=== PATIENT | female | born 1975 | race Caucasian/White ===

== ENCOUNTER 2018-04-22 22:24 | Emergency (ER) | payer OTHER ==
[~2018-04-22] VITALS: Ht 172.7 cm; Wt 127.9 kg
--- NOTE | ~2018-04-22 | EKG ---
[place], [place] ELECTROCARDIOGRAM REPORT NAME: AIDAN LAWS UNIT #: [id number] ROOM: DOCTOR: EPIPHANY DRAFT REPORT BIRTHDATE: [birth year] [facility] Test Date: 2018-04-22 Test Time: 22:54:13 Pat Name: AIDAN LAWS Department: ER Room: 5 Gender: F Can Stacker: FROYLAN : 1975 Requested By: ULISES WHITMORE Order Number: [id number] Reading MD: Aimee Bowens MD Measurements Intervals [place] Rate: 84 P: 30 TX: 147 QRS: 29 QRSD: 82 T: 26 QT: 363 QTc: 430 Interpretive Statements Sinus rhythm Low voltage, precordial leads Baseline wander in lead(s) I,aVR Electronically Signed On 04-24-2018 14:01:55 PDT by Aimee Bowens MD CM:EKGRPT:ELECTROCARDIOGRAM REPORT [id number] ULISES LARA DRAFT REPORT ULISES WHITMORE DO
--- NOTE | ~2018-04-22 | EKG ---
[place], [place] ELECTROCARDIOGRAM REPORT NAME: AIDAN LAWS UNIT #: [id number] ROOM: DOCTOR: EPIPHANY DRAFT REPORT BIRTHDATE: [birth year] [facility] Test Date: 2018-04-23 Test Time: 01:41:13 Pat Name: AIDAN LAWS Department: ER Room: 5 Gender: F Cardiac Sonographer: Candi Worley : 1975 Requested By: ULISES WHITMORE Order Number: [id number] Reading MD: Aimee Bowens MD Measurements Intervals [place] Rate: 68 P: 41 NM: 142 QRS: 51 QRSD: 84 T: 50 QT: 438 QTc: 466 Interpretive Statements Sinus rhythm Borderline low voltage, extremity leads Electronically Signed On 04-24-2018 14:02:02 PDT by Aimee Bowens MD CM:EKGRPT:ELECTROCARDIOGRAM REPORT [id number] ULISES LARA DRAFT REPORT ULISES WHITMORE DO
[2018-04-22] MEDS ORDERED: XARELTO1 EACH PO (22:41)
[2018-04-22 23:28] LABS: BASO # 0.1 10*3/uL (0.0-0.1); BASO % 0.5 % (0.0-1.0); EOS # 0.1 10*3/uL (0.0-0.4); EOS % 0.5 % (1.0-4.0); HEMATOCRIT 45.4 % (37.0-47.0); LYMPH % 28.3 % (27.0-41.0); MEAN CORPUSCULAR HGB 31.1 pg (27.0-31.0); MEAN PLATELET VOLUME 10.2 fl (9.6-12.3); MONO # 0.7 10*3/uL (0.1-1.0); MONO % 6.6 % (3.0-9.0); NEUT # 6.7 10*3/uL (2.3-7.9); NEUT % 63.6 % (47.0-73.0); PLATELET COUNT AUTOMATED 266 10*3/uL (130-400); RED BLOOD COUNT 4.83 10*6/uL (4.10-5.10); RED CELL DISTRI WIDTH 13.6 % (0-14.5); WHITE BLOOD COUNT 10.6 10*3/uL (4.8-10.8)
[2018-04-22 23:38] LABS: ACT PARTIAL THROMBO TIME 26.9 SECONDS (20.8-31.5); INTERNATIONAL NORM RATIO 1.1 (2.0-3.5)
[2018-04-22 23:44] LABS: ALBUMIN 3.4 gm/dl (3.1-4.5); ALKALINE PHOSPHATASE 81 U/L (45-117); BUN 14 mg/dl (7-24); CHLORIDE 108 mmol/L (98-107); CREATININE 1.08 mg/dL (0.55-1.02); POTASSIUM 3.9 mmol/L (3.5-5.1); SGOT/AST 20 IU/L (3-35); SGPT/ALT 24 U/L (12-78); SODIUM 139 mmol/L (136-145); TOTAL PROTEIN 6.8 gm/dL (6.4-8.2); TROPONIN I < 0.015 ng/ml (<0.045)
== END 2018-04-23 03:30 | disposition home or self-care (01) ==
LOC: ED 22:24
PROVIDERS: Emergency Medicine
DX: R07.9 Chest pain, unspecified (principal); R06.02 Shortness of breath; M79.605 Pain in left leg; Z79.899 Other long term (current) drug therapy

== ENCOUNTER → 2018-07-25 | Outpatient (CLI) | payer OTHER ==
[~2018-07-25] MED LIST: XARELTO1 EACH PO
== END | disposition home or self-care (01) ==
LOC: US 16:16
DX: M71.22 Synovial cyst of popliteal space [Baker], left knee (principal)

== ENCOUNTER → 2020-03-13 | Outpatient (CLI) | payer BC ==
[2020-03-13 09:41] LABS: BASO # 0.1 10*3/uL (0.0-0.1); BASO % 0.6 % (0.0-1.0); HEMATOCRIT 46.5 % (37.0-47.0); LYMPH % 22.9 % (27.0-41.0); MEAN CELL VOLUME 92.4 fl (81.0-99.0); MEAN CORPUSCULAR HGB 29.2 pg (27.0-31.0); MEAN CORPUSCULAR HGB CONC 31.6 g/dl (33.0-37.0); MEAN PLATELET VOLUME 9.5 fl (9.6-12.3); MONO # 0.5 10*3/uL (0.1-1.0); MONO % 6.3 % (3.0-9.0); NEUT % 69.9 % (47.0-73.0); PLATELET COUNT AUTOMATED 362 10*3/uL (130-400); RED BLOOD COUNT 5.03 10*6/uL (4.10-5.10); RED CELL DISTRI WIDTH 14.7 % (0-14.5); WHITE BLOOD COUNT 8.6 10*3/uL (4.8-10.8)
[2020-03-13 09:52] LABS: IRON 81 ug/dL (50-170); TOTAL IRON BINDING CAPACITY 379 ug/dl (250-450)
[2020-03-13 09:54] LABS: ALBUMIN 3.3 gm/dl (3.1-4.5); ALKALINE PHOSPHATASE 89 U/L (45-117); BUN 19 mg/dl (7-24); CHLORIDE 107 mmol/L (98-107); CHOLESTEROL 204 mg/dL (<200); CREATININE 0.97 mg/dL (0.55-1.02); HDL CHOLESTEROL 44 mg/dl (40-60); LDL CHOLESTEROL 137 mg/dL (9-159); POTASSIUM 4.1 mmol/L (3.5-5.1); SGOT/AST 16 IU/L (3-35); SGPT/ALT 15 U/L (12-78); SODIUM 138 mmol/L (136-145); TOTAL PROTEIN 7.1 gm/dL (6.4-8.2); TRIGLYCERIDES 113 mg/dl (<150); VLDL CHOLESTEROL 23 mg/dL (6-40)
== END | disposition home or self-care (01) ==
LOC: LAB 09:00
PROVIDERS: Internal Medicine; ATTEND Nurse Practitioner Family
DX: I10 Essential (primary) hypertension (principal)

== ENCOUNTER → 2021-11-19 | Outpatient (CLI) | payer OTHER | END | disposition home or self-care (01) | LOC: RAD 11:57 | PROVIDERS: ATTEND Nurse Practitioner Family | DX: J44.1 Chronic obstructive pulmonary disease with (acute) exacerbation (principal) ==

== ENCOUNTER → 2021-12-23 | Outpatient (CLI) | payer OTHER | END | disposition home or self-care (01) | LOC: RESCLI 00:46 | PROVIDERS: ATTEND Internal Medicine | DX: J44.9 Chronic obstructive pulmonary disease, unspecified (principal); F17.210 Nicotine dependence, cigarettes, uncomplicated; Z71.6 Tobacco abuse counseling; E55.9 Vitamin D deficiency, unspecified; R09.82 Postnasal drip; E66.01 Morbid (severe) obesity due to excess calories; Z68.41 Body mass index [BMI] 40.0-44.9, adult; Z79.899 Other long term (current) drug therapy; Z90.49 Acquired absence of other specified parts of digestive tract ==